=== PATIENT | female | born 1945 | race Caucasian/White ===

== ENCOUNTER 2023-10-19 14:37 | Emergency (ER) | payer OTHER, SELFPAY ==
[2023-10-19 14:45] VITALS: BP 165/86
--- NOTE | 2023-10-19 14:56 | ED.GENMED ---
ED Provider Triage
-
Patient seen by provider in Triage?: Seen in Triage
78 year old not on thinners fell last week face first. Here with headache, dizzy sensation and neck pain. Spoke with PMD and sent here for eval. Symptoms are worsening since fall. Head and cervical spine CT ordered.
History of Present Illness
General
Chief Complaint: Dizziness
Past History
Past History
ED Past Medical History: GERD, Hypercholesterolemia and Other (IBS)
ED Past Surgical History: Other (Neuro Stimulator, Sphenoidotomy (removal sphenoid bone), Frontal Sinusotomy)
Social History
Tobacco: Non-smoker
Alcohol: None
Personal:
Living: alone
Course
Orders/Labs/Results
Orders:
Orders
10/19/23 14:56
CT Cervical Spine W/o Iv Contr Urgent
Comment:
Reason For Exam: fall, neck pain
CT Head W/o Iv Contrast Urgent
Comment:
Reason For Exam: fall, dizzy
Vital Signs
Initial and Last Documented VS:
Initial Vital Signs
Temp Pulse Resp BP Pulse Ox
98.8 F 80 18 165/86 99
10/19/23 14:45 10/19/23 14:45 10/19/23 14:45 10/19/23 14:45 10/19/23 14:45
Last Documented Vital Signs
Temp Pulse Resp BP Pulse Ox
98.8 F 80 18 165/86 99
10/19/23 14:45 10/19/23 14:45 10/19/23 14:45 10/19/23 14:45 10/19/23 14:45
ED Attending Note
-
Portions of this chart may have been created with voice recognition software.� Occasional wrong word or��sound alike� substitutions may have occurred due to the inherent limitations of voice recognition software.
Discharge Plan
Interventions
Interventions:
*Risk Screen - Suicide Last Done: 10/19/23 14:45
*General Assessment Last Done: 10/19/23 14:45
*Neglect/Abuse Screening Last Done: 10/19/23 14:45
Discharge Date and Time
Print Language: TURKISH
[2023-10-19] MEDS: ANTIVERT 25 MG PO (20:34)
--- NOTE | 2023-10-19 21:29 | ED.GENMED ---
History of Present Illness
General
Chief Complaint: Dizziness
Source: patient and spouse
Exam Limitations: none
Time Seen by Provider: 10/19/23 17:56
Nursing documentation reviewed up to this point in time: agreed with
History of Present Illness
History of Present Illness:
78-year-old female with past medical history of hyperlipidemia hypothyroidism presenting to the emergency department today with concerns of a fall 1 week ago when her foot got caught she hit her face. She felt okay at the time did not lose
consciousness carried on for multiple days started feeling some mild dizziness a few days ago has had some mild ongoing dizziness. At baseline patient claims that she has significant difficulty with ambulation is slightly worse than usual today.
Denies any severe headaches numbness weakness nausea vomiting.
Past History
Past History
ED Past Medical History: GERD, Hypercholesterolemia and Other (IBS)
ED Past Surgical History: Other (Neuro Stimulator, Sphenoidotomy (removal sphenoid bone), Frontal Sinusotomy)
Social History
Tobacco: Non-smoker
Alcohol: None
Personal:
Living: alone
Review of Systems
Review of Systems
Allergies reviewed?: Yes
All Other Systems: ROS reviewed and negative except as documented in HPI and ROS
Phy Exam
Physical Exam
Physical Exam:
GENERAL: Alert , in no apparent distress
EYE: pupils equal and reactive no nystagmus
NECK: Supple, no significant adenopathy.
ENT: o/p clr, mmm.
CARDIAC: Regular rate and rhythm .
LUNGS: Clear breath sounds bilaterally, no acute respiratory distress, no wheezes/rales/rhonchi
ABDOMEN: Soft, without focal tenderness, no r/g, no cvat
NEUROLOGICAL: Alert and oriented, no focal neuro deficits 5 out of 5 upper and lower extremity strength normal sensation with palpating bilaterally. Coordination was slightly worse in the left side than the right she claims this is chronic with
finger-nose and [id number].
SKIN: Warm and dry, skin intact.
MUSCULOSKELETAL: No edema, well perfused.
PSYCH: Normal and appropriate interaction.
Course
Orders/Labs/Results
Orders:
Orders
10/19/23 14:56
CT Cervical Spine W/o Iv Contr Urgent
Comment:
Reason For Exam: fall, neck pain
CT Head W/o Iv Contrast Urgent
Comment:
Reason For Exam: fall, dizzy
10/19/23 20:17
Meclizine [Antivert] 25 mg PO NOW STA
Vital Signs
Initial and Last Documented VS:
Initial Vital Signs
Temp Pulse Resp BP Pulse Ox
98.8 F 80 18 165/86 99
10/19/23 14:45 10/19/23 14:45 10/19/23 14:45 10/19/23 14:45 10/19/23 14:45
Last Documented Vital Signs
Temp Pulse Resp BP Pulse Ox
98.8 F 80 18 165/86 99
10/19/23 14:45 10/19/23 14:45 10/19/23 14:45 10/19/23 14:45 10/19/23 14:45
MDM/Problems Addressed
MDM/Problems Addressed:
78-year-old female presenting to the emergency department today 1 week after a fall where she hit her head. Head CT did not show any emergent traumatic injury did show meningioma. She was notified of this and will follow-up for this. Cervical
spine without emergent findings. Neurologic examination did have findings that patient claims were chronic no specific acute finding on exam. Patient was able to ambulate very comfortable during examination. Seems to be very unlikely to be
consistent with central vertigo. Patient was given meclizine with improvement of symptoms advised for close outpatient follow-up. Findings of the CT scan were discussed with neuro that claim there are no emergent needs for this.
*Critical Care Note
Total Time (30-74mins, 75-104mins- exclusive of procedures): Not Applicable
ED Attending Note
-
Portions of this chart may have been created with voice recognition software.� Occasional wrong word or��sound alike� substitutions may have occurred due to the inherent limitations of voice recognition software.
Discharge Plan
Departure
Patient Disposition: Home (Routine Discharge)
Date of Disposition: 10/19/23
Time of Disposition: 21:31
Patient with high blood pressure during this ER visit?: No
Condition: Good
Covid-19: Not Applicable
Discharge Problem:
Dizziness
Instructions: Dizziness
Prescriptions:
New
meclizine 25 mg tablet
25 mg PO BID PRN (Reason: dizziness) Qty: 7 0RF
Referrals:
Abram Browning MD [Active] - Follow up in 5-7 days
Diana Lomax MD [Family Provider] -
Activity Restrictions/Additional Instructions:
You came to the emergency department today with concerns after hitting her head a week ago as well as dizziness. Here your CT scan had the below listed findings. Please follow-up with neurology for this. Otherwise he can take meclizine 1 tab
every 8 hours to help with symptoms. Return to the emergency department for any progressive or worsening symptoms.
IMPRESSION:
No evidence of acute intracranial abnormality.
Nodular 9 mm focus of calcification along the inferior aspect of the right paramedian tentorium cerebelli, which could represent calcified meningioma or focal dystrophic tentorial calcification. No associated mass effect.
Interventions
Interventions:
*Risk Screen - Suicide Last Done: 10/19/23 14:45
*General Assessment Last Done: 10/19/23 14:45
*Neglect/Abuse Screening Last Done: 10/19/23 14:45
ED- Neurological Assessment Last Done: 10/19/23 17:55
Discharge Date and Time
Print Language: FRISIAN
[2023-10-19 21:47] VITALS: BP 169/91
== END 2023-10-19 21:52 | disposition home or self-care (01) ==
LOC: EMR 14:37
PROVIDERS: EMERGENCY PHYSICIAN Student in an Organized Health Care Education/Training Program; FAMILY PHYSICIAN Family Medicine
DX: S09.90XA Unspecified injury of head, initial encounter (principal); R42 Dizziness and giddiness; W19.XXXA Unspecified fall, initial encounter; E03.9 Hypothyroidism, unspecified; E78.00 Pure hypercholesterolemia, unspecified; K21.9 Gastro-esophageal reflux disease without esophagitis; K58.9 Irritable bowel syndrome, unspecified; Z88.6 Allergy status to analgesic agent; Z88.5 Allergy status to narcotic agent; Z88.8 Allergy status to other drugs, medicaments and biological substances; Z91.018 Allergy to other foods; Z91.048 Other nonmedicinal substance allergy status
CPT/HCPCS: 99284; 70450; 72125

== ENCOUNTER → 2024-01-07 14:55 | Outpatient (REF) | payer OTHER, SELFPAY | LOC: HWWDC 14:55 | PROVIDERS: ATTENDING PHYSICIAN Family Medicine | DX: Z12.31 Encounter for screening mammogram for malignant neoplasm of breast (principal) | CPT/HCPCS: 77063; 77067 ==

== ENCOUNTER → 2024-01-19 08:25 | Outpatient (REF) | payer OTHER, SELFPAY | LOC: WDC 08:25 | PROVIDERS: ATTENDING PHYSICIAN Family Medicine | DX: R92.8 Other abnormal and inconclusive findings on diagnostic imaging of breast (principal) | CPT/HCPCS: 76642 ==

== ENCOUNTER 2025-01-20 17:32 | Emergency (ER) | payer OTHER, SELFPAY ==
[2025-01-20 17:39] VITALS: BP 140/93
[2025-01-20 18:30] LABS: Hematocrit 34.5 % (37.0-47.0); Hemoglobin 11.5 g/dL (12.0-16.0); Mean Corp Hgb Conc. 33.3 g/dL (33.0-37.0); Mean Corpuscular Volume 99.1 fL (81.0-99.0); Nucleated Red Blood Cells % 0 %; Platelet Count 374 10^3/uL (130-400); Red Cell Dist. Width 13.6 % (11.5-14.5)
[2025-01-20 18:49] LABS: ALT (SGPT) 13 U/L (0-35); AST (SGOT) 20 U/L (14-36); Albumin 4.2 g/dl (3.5-5.0); Alkaline Phosphatase 41 U/L (38-126); Blood Urea Nitrogen 14 mg/dl (7-17); Calcium 9.1 mg/dl (8.4-10.2); Carbon Dioxide 23 mmol/L (22-30); Chloride 110 mmol/L (98-107); Glucose 86 mg/dl (70-99); Potassium 4.5 mmol/L (3.5-5.1); Sodium 139 mmol/L (135-145); Total Protein 7.3 g/dl (6.3-8.2); eGFR > 60.00
[2025-01-20 18:50] LABS: Troponin I 0.014 ng/ml
[2025-01-20 20:20] VITALS: BP 154/65; BMI 31.7
--- NOTE | 2025-01-20 20:38 | ED.GENMED ---
History of Present Illness
General
Chief Complaint: Musculo-Skeletal Complaint
Source: patient
Exam Limitations: none
Time Seen by Provider: 01/20/25 20:07
Nursing documentation reviewed up to this point in time: agreed with
History of Present Illness
History of Present Illness:
79-year-old female presents emergency department complaining of spasms and pain in her left back left leg and left arm. She has had this in the past, but it seemed worse this time. She has a history of fibromyalgia and back pain. She has a nerve
stimulator, and has had a laminectomy in the past.
Past History
Past History
ED Past Medical History: GERD, Hypercholesterolemia and Other (IBS)
ED Past Surgical History: Other (Neuro Stimulator, Sphenoidotomy (removal sphenoid bone), Frontal Sinusotomy)
Social History
Tobacco: Non-smoker
Alcohol: None
Personal:
Living: alone
Review of Systems
Review of Systems
Allergies reviewed?: Yes
All Other Systems: Not applicable
Constitutional: Reports no symptoms
EENT: Reports no symptoms
Respiratory: Reports no symptoms
Cardiac: Reports no symptoms
ABD/GI: Reports no symptoms
: Reports no symptoms
Musculoskeletal: Reports muscle pain and back pain
Skin: Reports no symptoms
Neurological: Reports no symptoms
Endocrine: Reports no symptoms
Hematologic/Lymphatic: Reports no symptoms
Psychiatric: Reports no symptoms
Phy Exam
Physical Exam
Physical Exam:
Physical Exam
General: no apparent distress, not acutely ill
Neck: supple. no meningeal signs. normal posterior pharynx
Heart: s1/s2 regular rate and rhythm, no murmur. equal radial
pulses.
HEENT: Pupils equal round reactive to light, EOMI
Lungs: no acute respiratory distress. clear bilaterally
Abdomen: normal bowel sounds. not tender. no CVAT
Neuro: alert and oriented. no focal neurological deficits cranial nerves II through XII intact
Skin: no rash, scarring on back and thoracic region midline and lumbar
Psychiatric: well kept. interactive and cooperative
Extremities: no edema. no calf tenderness. negative homans. good distal pulses
Course
Orders/Labs/Results
Orders:
Orders
01/20/25 17:47
CT Head W/o Iv Contrast Urgent
Comment:
Reason For Exam: left sided pain
01/20/25 18:06
CMP [Comprehensive Metabolic Panel] Urgent
Complete Blood Count/With Diff Urgent
Troponin I Urgent
Abnormal Lab Results
01/20/25
18:06
RBC 3.48 L 10^6/uL
(4.20-5.40)
Hgb 11.5 L g/dL
(12.0-16.0)
Hct 34.5 L %
(37.0-47.0)
MCV 99.1 H fL
(81.0-99.0)
MCH 33.0 H pg
(27.0-31.0)
Chloride 110 H mmol/L
(98-107)
01/20/25 18:06
01/20/25 18:06
Vital Signs
Initial and Last Documented VS:
Initial Vital Signs
Temp Pulse Resp BP Pulse Ox
98.4 F 80 18 140/93 96
01/20/25 17:39 01/20/25 17:39 01/20/25 17:39 01/20/25 17:39 01/20/25 17:39
Last Documented Vital Signs
Temp Pulse Resp BP Pulse Ox
98.4 F 80 18 154/65 97
01/20/25 17:39 01/20/25 17:39 01/20/25 17:39 01/20/25 20:20 01/20/25 20:57
MDM/Problems Addressed
Differential Diagnosis Includes:
CVA, radiculopathy, muscle spasms
MDM/Problems Addressed:
79-year-old male with left-sided muscle spasms, no signs of CVA. No muscle weakness. CT head normal. Patient feels well and would like to go home stable for discharge.
Chronic conditions affecting care: Other (Fibromyalgia)
*Pulse Oximetry
SaO2: 99
Oxygen Mode of Delivery: Room air
Patient hypoxic: no
*Critical Care Note
Total Time (30-74mins, 75-104mins- exclusive of procedures): Not Applicable
Data Reviewed
Prescriptions/Medications Considered But Not Given:
Gabapentin considered, but may interact with her medications
Patient Management
Social determinants of health affecting care: Living situation
Escalation/DeEscalation of care consider admission/obs:
admit not indicated
ED Attending Note
-
Portions of this chart may have been created with voice recognition software.� Occasional wrong word or��sound alike� substitutions may have occurred due to the inherent limitations of voice recognition software.
Discharge Plan
Departure
Patient Disposition: Home (Routine Discharge)
Date of Disposition: 01/20/25
Time of Disposition: 20:42
Patient with high blood pressure during this ER visit?: Yes
Condition: Good
Discharge Problem:
Muscle spasm of left shoulder, Muscle spasm of left lower extremity
Instructions: Muscle spasms (muscle cramps), BLOOD PRESSURE
Prescriptions:
No Action
meclizine 25 mg tablet
25 mg PO BID PRN (Reason: dizziness) Qty: 7 0RF
Activity Restrictions/Additional Instructions:
Follow up with primary care. Return for any concerns.
Interventions
Interventions:
*Risk Screen - Suicide Last Done: 01/20/25 17:34
*General Assessment Last Done: 01/20/25 20:20
*Neglect/Abuse Screening Last Done: 01/20/25 17:39
*ED- Fall Risk Assessment Last Done: 01/20/25 20:20
*ED COVID-19 Vaccine History Last Done: 01/20/25 20:20
*ED Influenza Vaccine History Last Done: 01/20/25 20:20
*Nursing Disposition Last Done: 01/20/25 20:57
ED-Musculoskeletal Assessment Last Done: 01/20/25 20:26
Discharge Date and Time
Discharge Date/Time: 01/20/25 20:57
Print Language: [id number]
== END 2025-01-20 20:57 | disposition home or self-care (01) ==
LOC: EMR 17:32
PROVIDERS: Student in an Organized Health Care Education/Training Program; EMERGENCY PHYSICIAN Emergency Medicine; FAMILY PHYSICIAN Family Medicine
DX: M62.838 Other muscle spasm (principal); M62.831 Muscle spasm of calf; E78.00 Pure hypercholesterolemia, unspecified; K21.9 Gastro-esophageal reflux disease without esophagitis; K58.9 Irritable bowel syndrome, unspecified; M79.7 Fibromyalgia; Z96.82 Presence of neurostimulator
CPT/HCPCS: 99284; 70450; 80053; 84484; 85025; 93005

== ENCOUNTER → 2025-03-07 13:34 | Outpatient (REF) | payer OTHER, SELFPAY | LOC: HWWDC 13:34 | PROVIDERS: ATTENDING PHYSICIAN Family Medicine | DX: Z12.31 Encounter for screening mammogram for malignant neoplasm of breast (principal) | CPT/HCPCS: 77063; 77067 ==